=== PATIENT | female | born 1980 | race Caucasian/White ===

== ENCOUNTER 2016-10-17 21:25 | Emergency (ER) | payer OTHER ==
[2016-10-17 22:51] LABS: URINE BILIRUBIN 1+ (NEGATIVE); URINE BLOOD 3+ (NEGATIVE); URINE GLUCOSE (UA) NORMAL (NORMAL); URINE KETONE TRACE (NEGATIVE); URINE LEUKOCYTE ESTERASE 2+ (NEGATIVE); URINE NITRATE POSITIVE (NEGATIVE); URINE PROTEIN 2+ (NEGATIVE)
[2016-10-17 23:02] LABS: URINE BACTERIA 1+ (NONE SEEN); URINE MUCUS TRACE; URINE SQUAMOUS EPITHELIAL CELL 0-10 /[HPF] (NONE SEEN); URINE WBC >15 /[HPF] (0-5)
== END 2016-10-18 00:14 | disposition home or self-care (01) ==
LOC: ER 21:25
PROVIDERS: Internal Medicine
DX: N39.0 Urinary tract infection, site not specified (principal); R30.0 Dysuria; R10.2 Pelvic and perineal pain; Z85.3 Personal history of malignant neoplasm of breast
CPT/HCPCS: 80307; 81001; 87086; 87186; 96372; 99070; 99283; 99283-25